=== PATIENT | male | born 1980 | race Two or more races ===

== ENCOUNTER 2021-06-13 20:14 | Emergency (ER) | payer OTHER ==
[~2021-06-13] VITALS: Ht 177.8 cm; Wt 89.8 kg
[2021-06-13] MEDS ORDERED: IBUPROFEN (20:52)
== END 2021-06-14 00:54 | disposition home or self-care (01) ==
LOC: ER 20:14
DX: S61.214A Laceration without foreign body of right ring finger without damage to nail, initial encounter (principal); W26.8XXA Contact with other sharp object(s), not elsewhere classified, initial encounter; Y92.89 Other specified places as the place of occurrence of the external cause